=== PATIENT | male | born 1970 | race African-American/Black ===

== ENCOUNTER 2017-03-18 16:17 | Inpatient (IN) | payer MEDICAID, MEDICARE ==
[~2017-03-18] VITALS: Ht 167.6 cm; Wt 192.8 kg
[~2017-03-18 16:17] MED LIST: ADVAIR; ALLO100T PO; COR12 PO; ENALAPRIL; FURO40TA5 PO; HYDR-4134 PO; ISOSORBIDE; LANOXIN 0.25 MG; LIP40 PO; LISI-186 PO; METF500T4 PO; POTA10TA20 PO; RIVA20TA PO; SPIR25TA PO; WARF5TAB73 PO; amiodarone PO
[2017-03-18] MEDS ORDERED: LEVETIRACETAM 500MG PREMIX 100 ML IV ONE (18:00)
[2017-03-18 18:16] LABS: BASOPHILS % 1.1 % (0.0-2.0); HEMOGLOBIN. 12.8 g/dL (14.0-18.0); LYMPHOCYTES % 37.9 % (20.0-50.0); MEAN CORPUSCULAR HEMOGLOBIN 27.8 pg (28.0-32.0); MEAN CORPUSCULAR VOLUME 82.5 fL (80.0-94.0); MEAN PLATELET VOLUME 8.3 fl (7.4-10.4); MONOCYTES % 7.9 % (2.0-8.0); NEUTROPHILS % 51.1 % (40.0-76.0); PLATELET 215 x1000/uL (130-400); RED CELL DISTRIBUTION WIDTH 15.7 % (11.6-14.6)
[2017-03-18 18:25] LABS: INR 2.9; PARTIAL THROMBOPLASTIN TIME 43.7 sec (23.4-31.0); PROTHROMBIN TIME 29.8 sec (9.4-11.6)
[2017-03-18 18:30] LABS: CARBON DIOXIDE 29 mEq/L (21-32); CHLORIDE 102 mEq/L (98-107)
[2017-03-18 18:33] LABS: TROPONIN I < 0.02 ng/mL (0.00-0.04)
[2017-03-18] MEDS ORDERED: ASPIRIN 81MG TABLET PO ONE (18:45)
[2017-03-18 20:45] LABS: CLARITY URINE CLEAR (CLEAR); COLOR URINE YELLOW (YELLOW); GLUCOSE URINE NEGATIVE (NEGATIVE); KETONES URINE TRACE (NEGATIVE); LEUKOCYTE ESTERASE URINE NEGATIVE (NEGATIVE); NITRITE URINE NEGATIVE (NEGATIVE); OCCULT BLOOD URINE NEGATIVE (NEGATIVE); PROTEIN URINE TRACE (NEGATIVE); SPECIFIC GRAVITY URINE 1.029 (1.005-1.030); UROBILINOGEN URINE 0.2 E.U./dL (0.2-1.0)
[2017-03-18] MEDS ORDERED: DEXTROSE 50% WATER 50ML SYRINGE IV PRN (21:30)
[2017-03-18 22:07] VITALS: BP_SYST 103; BP_SYST 126; BP_DIAS 63; BP_DIAS 72
[2017-03-18 23:54] LABS: BASOPHILS % 0.8 % (0.0-2.0); HEMATOCRIT. 37.2 % (42.0-52.0); HEMOGLOBIN. 12.4 g/dL (14.0-18.0); LYMPHOCYTES % 46.4 % (20.0-50.0); MEAN CORPUSCULAR HEMOGLOBIN 27.6 pg (28.0-32.0); MEAN CORPUSCULAR VOLUME 82.6 fL (80.0-94.0); MEAN PLATELET VOLUME 7.6 fl (7.4-10.4); NEUTROPHILS % 43.8 % (40.0-76.0); PLATELET 204 x1000/uL (130-400); RED CELL DISTRIBUTION WIDTH 16.1 % (11.6-14.6)
[2017-03-19 00:18] LABS: CARBON DIOXIDE 28 mEq/L (21-32); CHLORIDE 104 mEq/L (98-107); CREATINE KINASE 210 IU/L (39-308); TROPONIN I < 0.02 ng/mL (0.00-0.04)
[2017-03-19 00:23] LABS: CREATINE KINASE MB FRACTION 1.5 ng/mL (0.5-3.6)
[2017-03-19] MEDS ORDERED: CLONIDINE 0.1MG TABLET PO PRN (01:15)
[2017-03-19 04:00] VITALS: BP 157/91
[2017-03-19] MEDS: BLOOD SUGAR DIAGNOSTIC STRIP TEST SCH ×4 (06:38→21:42)
[2017-03-19] MEDS: INSULIN LISPRO 100 UNITS/ML SUBCUT SCH ×4 (06:46→21:53)
[2017-03-19 06:51] LABS: INR 2.9; PROTHROMBIN TIME 29.8 sec (9.4-11.6)
[2017-03-19 07:08] LABS: BASOPHILS % 0.5 % (0.0-2.0); EOSINOPHILS % 2.1 % (0.0-5.0); HEMATOCRIT. 37.5 % (42.0-52.0); HEMOGLOBIN. 12.5 g/dL (14.0-18.0); LYMPHOCYTES % 36.7 % (20.0-50.0); MEAN CORPUSCULAR HEMOGLOBIN 27.7 pg (28.0-32.0); MEAN CORPUSCULAR VOLUME 82.8 fL (80.0-94.0); MEAN PLATELET VOLUME 8.2 fl (7.4-10.4); MONOCYTES % 8.4 % (2.0-8.0); NEUTROPHILS % 52.3 % (40.0-76.0); PLATELET 216 x1000/uL (130-400); RED BLOOD CELL COUNT 4.53 mill/uL (4.7-6.1); RED CELL DISTRIBUTION WIDTH 15.9 % (11.6-14.6)
[2017-03-19 07:31] LABS: CHLORIDE 102 mEq/L (98-107)
[2017-03-19 07:48] LABS: CARBON DIOXIDE 28 mEq/L (21-32); HDL CHOLESTEROL 44 mg/dL (40-59); LDL CHOLESTEROL 118 mg/dL (5-100)
[2017-03-19 08:00] VITALS: BP 136/67
[2017-03-19] MEDS: ASPIRIN 81MG TABLET PO SCH (08:55)
[2017-03-19] MEDS ORDERED: IOHEXOL-350 100 ML BOTTLE ONE (11:19)
[2017-03-19] MEDS ORDERED: SODIUM CHLORIDE 0.9% 10ML VIAL ONE (11:19)
[2017-03-19] MEDS ORDERED: LORAZEPAM 2MG/ML CPJ IV PRN (11:30)
[2017-03-19 11:40] LABS: BG BASE EXCESS 3.9 mmol/L (-2.0-2.0); BG CARBOXYHEMOGLOBIN 1.1 % (0.5-1.5); BG DEOXYHEMOGLOBIN 4.9 % (0.0-5.0); BG FRACTION INSPIRED OXYGEN 21; BG HCO3 ACT 30.4 mmol/L (22.0-26.0); BG METHEMOGLOBIN 0.3 % (0.0-1.5); BG OXYHEMOGLOBIN 93.7 % (94.0-97.0); BG PCO2 53.1 mmHg (35.0-45.0); BG PH 7.375 (7.350-7.450); BG PO2 75.8 mmHg (75.0-100.0); BG SAMPLE SITE RIGHT RADIAL; BG VENT MODE ROOM AIR
[2017-03-19 12:00] VITALS: BP_SYST 103; BP_SYST 165; BP_DIAS 64; BP_DIAS 92
[2017-03-19] MEDS: LEVETIRACETAM 500MG TABLET PO SCH ×2 (12:25→21:48)
[2017-03-19 13:00] LABS: T4 FREE 0.94 ng/dL (0.76-1.46)
[2017-03-19 13:16] LABS: FOLIC ACID (FOLATE) SERUM 12.7 ng/mL (>5.38)
[2017-03-19] MEDS: ALLOPURINOL 100 MG TABLET PO SCH (13:48)
[2017-03-19] MEDS: HYDRALAZINE HCL 25MG TABLET PO SCH ×2 (13:49→21:49)
[2017-03-19] MEDS: AMIODARONE HCL 200 MG TABLET PO SCH (13:49)
[2017-03-19] MEDS ORDERED: LIDOCAINE HCL/PF 1% 2ML VIAL ONE (14:42)
[2017-03-19 16:00] VITALS: BP 139/92
[2017-03-19] MEDS ORDERED: WARFARIN SODIUM 7.5MG TABLET PO SCH (18:00)
[2017-03-19] MEDS: FUROSEMIDE 40MG TABLET PO SCH (18:03)
[2017-03-19] MEDS: METFORMIN HCL 500MG TABLET PO SCH (18:03)
[2017-03-19 20:00] VITALS: BP 134/76
[2017-03-19] MEDS ORDERED: ATORVASTATIN CALCIUM 40MG TABLET PO SCH (21:00)
[2017-03-19] MEDS: CARVEDILOL 12.5MG TABLET PO SCH (21:48)
[2017-03-20] VITALS: BP 123/68
[2017-03-20 04:07] VITALS: BP 118/67
[2017-03-20] MEDS: BLOOD SUGAR DIAGNOSTIC STRIP TEST SCH ×3 (06:12→17:06)
[2017-03-20] MEDS: INSULIN LISPRO 100 UNITS/ML SUBCUT SCH ×3 (06:20→18:05)
[2017-03-20] MEDS: HYDRALAZINE HCL 25MG TABLET PO SCH ×2 (06:20→13:45)
[2017-03-20 06:30] LABS: BASOPHILS % 0.3 % (0.0-2.0); EOSINOPHILS % 1.8 % (0.0-5.0); HEMATOCRIT. 39.2 % (42.0-52.0); HEMOGLOBIN. 13.1 g/dL (14.0-18.0); LYMPHOCYTES % 38.9 % (20.0-50.0); MEAN CORPUSCULAR HEMOGLOBIN 27.6 pg (28.0-32.0); MEAN CORPUSCULAR VOLUME 82.4 fL (80.0-94.0); MEAN PLATELET VOLUME 8.3 fl (7.4-10.4); MONOCYTES % 7.6 % (2.0-8.0); NEUTROPHILS % 51.4 % (40.0-76.0); PLATELET 239 x1000/uL (130-400); RED BLOOD CELL COUNT 4.75 mill/uL (4.7-6.1); RED CELL DISTRIBUTION WIDTH 16.2 % (11.6-14.6)
[2017-03-20 06:36] LABS: INR 2.1; PROTHROMBIN TIME 22.4 sec (9.4-11.6)
[2017-03-20 07:52] LABS: CARBON DIOXIDE 29 mEq/L (21-32); CHLORIDE 97 mEq/L (98-107)
[2017-03-20 08:05] LABS: *AMPHETAMINES SCREEN URINE NEGATIVE (NEGATIVE); *BARBITURATES SCREEN URINE NEGATIVE (NEGATIVE); *BENZODIAZEPINES SCREEN URINE NEGATIVE (NEGATIVE); *COCAINE SCREEN URINE NEGATIVE (NEGATIVE); CANNABINOID URINE SCREEN NEGATIVE (NEGATIVE); METHADONE URINE SCREEN NEGATIVE (NEGATIVE); OPIATES URINE SCREEN NEGATIVE (NEGATIVE); PHENCYCLIDINE URINE SCREEN NEGATIVE (NEGATIVE)
[2017-03-20 08:30] VITALS: BP 141/86
[2017-03-20] MEDS: ALLOPURINOL 100 MG TABLET PO SCH (08:58)
[2017-03-20] MEDS: ASPIRIN 81MG TABLET PO SCH (08:58)
[2017-03-20] MEDS: METFORMIN HCL 500MG TABLET PO SCH ×2 (08:58→18:03)
[2017-03-20] MEDS: LEVETIRACETAM 500MG TABLET PO SCH (08:58)
[2017-03-20] MEDS: CARVEDILOL 12.5MG TABLET PO SCH (08:59)
[2017-03-20] MEDS: AMIODARONE HCL 200 MG TABLET PO SCH (08:59)
[2017-03-20] MEDS: FUROSEMIDE 40MG TABLET PO SCH ×2 (08:59→17:00)
[2017-03-20] MEDS ORDERED: SPIRONOLACTONE 25MG TABLET PO SCH (09:00)
[2017-03-20] MEDS ORDERED: POTASSIUM CHLORIDE 10MEQ TABLET SR PO SCH (09:00)
[2017-03-20] MEDS ORDERED: WARFARIN SODIUM 5MG TABLET PO SCH (09:00)
[2017-03-20] MEDS ORDERED: KEPP500 PO (11:15)
[2017-03-20 12:30] VITALS: BP 131/77
[2017-03-20 16:30] VITALS: BP 141/86
[2017-03-20] MEDS ORDERED: WARFARIN SODIUM 10MG TABLET PO NR (18:00)
[2017-03-20 18:07] VITALS: BP 86/77
== END 2017-03-20 18:30 | disposition home or self-care (01) | DRG 69 ==
LOC: ER 16:17 → 5WST 19:11 → EDBEDREQSVC 19:17 → EDBEDREQ 19:17 → SUPCPDRO 19:43 → ENRESERV 20:39 → 5WST 03-19 00:50
PROVIDERS: ADMIT Internal Medicine; ATTEND Internal Medicine
DX: G45.9 Transient cerebral ischemic attack, unspecified (principal); G93.41 Metabolic encephalopathy; E11.65 Type 2 diabetes mellitus with hyperglycemia; I11.0 Hypertensive heart disease with heart failure; I50.42 Chronic combined systolic (congestive) and diastolic (congestive) heart failure; G40.909 Epilepsy, unspecified, not intractable, without status epilepticus; I48.91 Unspecified atrial fibrillation; Z68.44 Body mass index [BMI] 60.0-69.9, adult; I25.10 Atherosclerotic heart disease of native coronary artery without angina pectoris; E78.00 Pure hypercholesterolemia, unspecified; E78.5 Hyperlipidemia, unspecified; G47.33 Obstructive sleep apnea (adult) (pediatric); J44.9 Chronic obstructive pulmonary disease, unspecified; K42.9 Umbilical hernia without obstruction or gangrene; M10.9 Gout, unspecified; E66.01 Morbid (severe) obesity due to excess calories; Z79.84 Long term (current) use of oral hypoglycemic drugs; Z79.899 Other long term (current) drug therapy; Z79.01 Long term (current) use of anticoagulants; Z87.891 Personal history of nicotine dependence; Z95.810 Presence of automatic (implantable) cardiac defibrillator; Z86.73 Personal history of transient ischemic attack (TIA), and cerebral infarction without residual deficits; Z88.0 Allergy status to penicillin; Z91.19 Patient's noncompliance with other medical treatment and regimen; Z82.49 Family history of ischemic heart disease and other diseases of the circulatory system; Z83.3 Family history of diabetes mellitus; Z82.5 Family history of asthma and other chronic lower respiratory diseases
CPT/HCPCS: 36415; 36600; 70450; 70496; 71010; 80048; 80053; 80061; 80305; 81001; 82375; 82550; 82553; 82607; 82746; 82805; 82962; 83036; 83735; 83880; 84439; 84443; 84481; 84484; 85025; 85610; 85730; 92610; 93005; 93306; 93880; 93970; 96365; 97162; 97166; 99285; A4216; G0482; J1815; J1953; J3490; Q9967

== ENCOUNTER 2017-04-28 12:33 | Emergency (ER) | payer MEDICARE ==
[~2017-04-28] VITALS: Ht 167.6 cm; Wt 186.0 kg
[~2017-04-28 12:33] MED LIST changes: +KEPP500 PO; -RIVA20TA PO
[2017-04-28] MEDS ORDERED: LEVETIRACETAM 500MG TABLET PO ONE (14:00)
[2017-04-28 14:03] LABS: CLARITY URINE CLEAR (CLEAR); COLOR URINE YELLOW (YELLOW); GLUCOSE URINE NEGATIVE (NEGATIVE); KETONES URINE NEGATIVE (NEGATIVE); LEUKOCYTE ESTERASE URINE NEGATIVE (NEGATIVE); NITRITE URINE NEGATIVE (NEGATIVE); OCCULT BLOOD URINE NEGATIVE (NEGATIVE); PH URINE 6.5 (4.5-8.0); PROTEIN URINE NEGATIVE (NEGATIVE); SPECIFIC GRAVITY URINE 1.014 (1.005-1.030); UROBILINOGEN URINE 0.2 E.U./dL (0.2-1.0)
[2017-04-28 14:11] LABS: BASOPHILS % 1.2 % (0.0-2.0); EOSINOPHILS % 2.3 % (0.0-5.0); HEMATOCRIT. 37.3 % (42.0-52.0); HEMOGLOBIN. 12.4 g/dL (14.0-18.0); LYMPHOCYTES % 34.2 % (20.0-50.0); MEAN CORPUSCULAR HEMOGLOBIN 27.7 pg (28.0-32.0); MEAN CORPUSCULAR VOLUME 83.4 fL (80.0-94.0); MEAN PLATELET VOLUME 7.5 fl (7.4-10.4); MONOCYTES % 7.9 % (2.0-8.0); NEUTROPHILS % 54.4 % (40.0-76.0); PLATELET 205 x1000/uL (130-400); RED BLOOD CELL COUNT 4.47 mill/uL (4.7-6.1); RED CELL DISTRIBUTION WIDTH 15.9 % (11.6-14.6)
[2017-04-28 14:20] LABS: CARBON DIOXIDE 30 mEq/L (21-32); CHLORIDE 104 mEq/L (98-107)
[2017-04-28 14:25] LABS: *AMPHETAMINES SCREEN URINE NEGATIVE (NEGATIVE); *BARBITURATES SCREEN URINE NEGATIVE (NEGATIVE); *BENZODIAZEPINES SCREEN URINE NEGATIVE (NEGATIVE); *COCAINE SCREEN URINE NEGATIVE (NEGATIVE); CANNABINOID URINE SCREEN NEGATIVE (NEGATIVE); METHADONE URINE SCREEN NEGATIVE (NEGATIVE); OPIATES URINE SCREEN NEGATIVE (NEGATIVE); PHENCYCLIDINE URINE SCREEN NEGATIVE (NEGATIVE)
[2017-04-28 14:32] LABS: CREATINE KINASE 249 IU/L (39-308); ETHANOL BLOOD < 10 mg/dL
[2017-04-28 14:34] LABS: CARBAMAZEPINE < 0.5 ug/mL (4-12); PHENOBARBITAL < 2.1 ug/mL (15.0-40.0)
[2017-04-28 14:45] LABS: DIGOXIN < 0.1 ng/mL (0.9-2.0)
[2017-04-28 15:30] VITALS: BP 142/78
== END 2017-04-28 15:30 | disposition home or self-care (01) ==
LOC: ER 12:42
DX: R56.9 Unspecified convulsions (principal); R60.9 Edema, unspecified; Z91.19 Patient's noncompliance with other medical treatment and regimen; Z95.0 Presence of cardiac pacemaker; Z88.0 Allergy status to penicillin; Z79.01 Long term (current) use of anticoagulants
CPT/HCPCS: 36415; 80053; 80156; 80162; 80165; 80184; 80185; 80305; 81003; 82550; 84443; 85025; 93005; 99285; G0482

== ENCOUNTER 2017-05-07 13:38 | Inpatient (IN) | payer MEDICARE ==
[~2017-05-07] VITALS: Ht 167.6 cm; Wt 189.1 kg
[2017-05-07 15:34] LABS: HEMATOCRIT. 40.2 % (42.0-52.0); HEMOGLOBIN. 13.4 g/dL (14.0-18.0); MEAN CORPUSCULAR HEMOGLOBIN 28.2 pg (28.0-32.0); MEAN CORPUSCULAR VOLUME 84.7 fL (80.0-94.0); MEAN PLATELET VOLUME 8.3 fl (7.4-10.4); PLATELET 177 x1000/uL (130-400); RED BLOOD CELL COUNT 4.75 mill/uL (4.7-6.1); RED CELL DISTRIBUTION WIDTH 15.7 % (11.6-14.6)
[2017-05-07 15:41] LABS: INR 1.6; PROTHROMBIN TIME 16.3 sec (9.4-11.6)
[2017-05-07 15:48] LABS: CARBON DIOXIDE 30 mEq/L (21-32); CHLORIDE 100 mEq/L (98-107)
[2017-05-07 15:51] LABS: TROPONIN I < 0.02 ng/mL (0.00-0.04)
[2017-05-07 17:00] LABS: PLATELET ESTIMATE NORMAL
[2017-05-07] MEDS ORDERED: SODIUM CHLORIDE 0.9% 1,000 ML IV ONE (18:11)
[2017-05-07] MEDS ORDERED: ACETAMINOPHEN 650MG/20.3ML UDC PO ONE (18:15)
[2017-05-07] MEDS ORDERED: LEVOFLOXACIN 750MG PREMIX 150 ML IV ONE (19:00)
[2017-05-07 20:00] VITALS: BP 153/84
[2017-05-07 21:15] VITALS: BP 153/84
[2017-05-07] MEDS ORDERED: ACETAMINOPHEN 325MG TABLET PO PRN (23:00)
[2017-05-07] MEDS ORDERED: DEXTROSE 50% WATER 50ML SYRINGE IV PRN (23:00)
[2017-05-07] MEDS ORDERED: HYDROCODONE/ACETAMINOPHEN 5/325MG TABLET PO PRN (23:00)
[2017-05-07] MEDS ORDERED: IPRATROPIUM/ALBUTEROL 0.5-3(2.5)MG/3ML NEB INH PRN (23:00)
[2017-05-07] MEDS: IPRATROPIUM/ALBUTEROL 0.5-3(2.5)MG/3ML NEB HHN SCH (23:43)
[2017-05-07 23:45] LABS: BG BASE EXCESS -0.3 mmol/L (-2.0-2.0); BG CARBOXYHEMOGLOBIN 1.1 % (0.5-1.5); BG DEOXYHEMOGLOBIN 7.3 % (0.0-5.0); BG FRACTION INSPIRED OXYGEN 21; BG HCO3 ACT 23.6 mmol/L (22.0-26.0); BG METHEMOGLOBIN 0.2 % (0.0-1.5); BG OXYGEN SATURATION 92.6 % (92.0-98.5); BG OXYHEMOGLOBIN 91.4 % (94.0-97.0); BG PCO2 36.3 mmHg (35.0-45.0); BG PH 7.431 (7.350-7.450); BG PO2 63.7 mmHg (75.0-100.0); BG SAMPLE SITE RIGHT RADIAL; BG VENT MODE ROOM AIR
[2017-05-07] MEDS: ENOXAPARIN 40MG/0.4ML SYR SUBCUT SCH (23:57)
[2017-05-08 00:27] VITALS: BP 129/56
[2017-05-08] MEDS ORDERED: CEFTRIAXONE 1 G PREMIX 50 ML IV SCH (00:30)
[2017-05-08 01:03] LABS: CLARITY URINE CLEAR (CLEAR); COLOR URINE YELLOW (YELLOW); GLUCOSE URINE NEGATIVE (NEGATIVE); KETONES URINE NEGATIVE (NEGATIVE); LEUKOCYTE ESTERASE URINE NEGATIVE (NEGATIVE); NITRITE URINE NEGATIVE (NEGATIVE); OCCULT BLOOD URINE NEGATIVE (NEGATIVE); PH URINE 7.5 (4.5-8.0); PROTEIN URINE 1+ (NEGATIVE); SPECIFIC GRAVITY URINE 1.025 (1.005-1.030)
[2017-05-08 01:14] LABS: *AMPHETAMINES SCREEN URINE NEGATIVE (NEGATIVE); *BARBITURATES SCREEN URINE NEGATIVE (NEGATIVE); *BENZODIAZEPINES SCREEN URINE NEGATIVE (NEGATIVE); *COCAINE SCREEN URINE NEGATIVE (NEGATIVE); CANNABINOID URINE SCREEN NEGATIVE (NEGATIVE); METHADONE URINE SCREEN NEGATIVE (NEGATIVE); OPIATES URINE SCREEN PRESUMTIVE POSITIVE (NEGATIVE); PHENCYCLIDINE URINE SCREEN NEGATIVE (NEGATIVE)
[2017-05-08] MEDS ORDERED: IOHEXOL-350 100 ML BOTTLE ONE (03:38)
[2017-05-08 04:00] VITALS: BP 118/66
[2017-05-08] MEDS: IPRATROPIUM/ALBUTEROL 0.5-3(2.5)MG/3ML NEB HHN SCH ×5 (04:15→20:55)
[2017-05-08] MEDS: HYDRALAZINE HCL 25MG TABLET PO SCH ×3 (06:28→21:35)
[2017-05-08] MEDS: BLOOD SUGAR DIAGNOSTIC STRIP TEST SCH ×4 (06:28→21:35)
[2017-05-08 06:32] LABS: INR 1.5; PROTHROMBIN TIME 15.4 sec (9.4-11.6)
[2017-05-08] MEDS: INSULIN LISPRO 100 UNITS/ML SUBCUT SCH ×4 (06:32→21:44)
[2017-05-08 06:53] LABS: BASOPHILS % 0.4 % (0.0-2.0); EOSINOPHILS % 0.1 % (0.0-5.0); HEMATOCRIT. 37.3 % (42.0-52.0); HEMOGLOBIN. 12.6 g/dL (14.0-18.0); LYMPHOCYTES % 10.1 % (20.0-50.0); MEAN CORPUSCULAR HEMOGLOBIN 28.5 pg (28.0-32.0); MEAN CORPUSCULAR VOLUME 84.3 fL (80.0-94.0); MEAN PLATELET VOLUME 8.5 fl (7.4-10.4); MONOCYTES % 6.5 % (2.0-8.0); NEUTROPHILS % 82.9 % (40.0-76.0); PLATELET 178 x1000/uL (130-400); RED BLOOD CELL COUNT 4.42 mill/uL (4.7-6.1); RED CELL DISTRIBUTION WIDTH 15.7 % (11.6-14.6)
[2017-05-08 07:20] LABS: CARBON DIOXIDE 28 mEq/L (21-32); CHLORIDE 101 mEq/L (98-107); HDL CHOLESTEROL 47 mg/dL (40-59); LDL CHOLESTEROL 61 mg/dL (5-100); TROPONIN I < 0.02 ng/mL (0.00-0.04)
[2017-05-08 08:00] VITALS: BP 154/68
[2017-05-08] MEDS: LEVETIRACETAM 500MG TABLET PO SCH ×2 (08:47→21:34)
[2017-05-08] MEDS: FUROSEMIDE 40MG/4ML VIAL IVP SCH (08:47)
[2017-05-08] MEDS: AMIODARONE HCL 200 MG TABLET PO SCH (08:48)
[2017-05-08] MEDS: METFORMIN HCL 500MG TABLET PO SCH ×2 (08:48→17:09)
[2017-05-08] MEDS: CARVEDILOL 12.5MG TABLET PO SCH ×2 (08:48→17:09)
[2017-05-08] MEDS: ENOXAPARIN 40MG/0.4ML SYR SUBCUT SCH ×2 (08:49→21:36)
[2017-05-08] MEDS: SPIRONOLACTONE 25MG TABLET PO SCH (08:51)
[2017-05-08 12:00] VITALS: BP 101/58
[2017-05-08] MEDS: ALLOPURINOL 100 MG TABLET PO SCH (12:04)
[2017-05-08 16:00] VITALS: BP 117/56
[2017-05-08] MEDS: WARFARIN SODIUM 5MG TABLET PO SCH (17:10)
[2017-05-08] MEDS: LEVOFLOXACIN 750MG PREMIX 150 ML IV SCH (17:47)
[2017-05-08 20:00] VITALS: BP 133/94
[2017-05-08] MEDS: ATORVASTATIN CALCIUM 40MG TABLET PO SCH (21:38)
[2017-05-09] VITALS: BP 150/75
[2017-05-09] MEDS: IPRATROPIUM/ALBUTEROL 0.5-3(2.5)MG/3ML NEB HHN SCH ×6 (00:20→20:48)
[2017-05-09 04:00] VITALS: BP 144/82
[2017-05-09 05:59] LABS: INR 1.3; PROTHROMBIN TIME 13.4 sec (9.4-11.6)
[2017-05-09] MEDS: HYDRALAZINE HCL 25MG TABLET PO SCH ×3 (06:35→21:27)
[2017-05-09] MEDS: BLOOD SUGAR DIAGNOSTIC STRIP TEST SCH ×4 (06:35→21:26)
[2017-05-09] MEDS: INSULIN LISPRO 100 UNITS/ML SUBCUT SCH ×4 (06:41→21:32)
[2017-05-09 08:00] VITALS: BP 157/70
[2017-05-09] MEDS: FUROSEMIDE 40MG/4ML VIAL IVP SCH (08:40)
[2017-05-09] MEDS: CARVEDILOL 12.5MG TABLET PO SCH ×2 (08:41→17:28)
[2017-05-09] MEDS: LEVETIRACETAM 500MG TABLET PO SCH ×2 (08:41→21:26)
[2017-05-09] MEDS: METFORMIN HCL 500MG TABLET PO SCH ×2 (08:41→17:28)
[2017-05-09] MEDS: ALLOPURINOL 100 MG TABLET PO SCH (08:41)
[2017-05-09] MEDS: AMIODARONE HCL 200 MG TABLET PO SCH (08:42)
[2017-05-09] MEDS: SPIRONOLACTONE 25MG TABLET PO SCH (08:42)
[2017-05-09] MEDS: ENOXAPARIN 40MG/0.4ML SYR SUBCUT SCH ×2 (08:49→21:26)
[2017-05-09] MEDS ORDERED: POTASSIUM CHLORIDE 20MEQ TABLET SR PO NR (11:00)
[2017-05-09 12:00] VITALS: BP 110/66
[2017-05-09 16:00] VITALS: BP 117/63
[2017-05-09] MEDS: WARFARIN SODIUM 5MG TABLET PO SCH (17:29)
[2017-05-09] MEDS: LEVOFLOXACIN 750MG PREMIX 150 ML IV SCH (18:37)
[2017-05-09 20:00] VITALS: BP 117/52
[2017-05-09] MEDS: ATORVASTATIN CALCIUM 40MG TABLET PO SCH (21:26)
[2017-05-10] VITALS (7 sets, daily range): BP systolic 120–144; BP diastolic 51–74
[2017-05-10] MEDS: IPRATROPIUM/ALBUTEROL 0.5-3(2.5)MG/3ML NEB HHN SCH ×6 (01:21→21:25)
[2017-05-10 06:18] LABS: BASOPHILS % 0.3 % (0.0-2.0); HEMATOCRIT. 37.1 % (42.0-52.0); HEMOGLOBIN. 12.5 g/dL (14.0-18.0); LYMPHOCYTES % 36.1 % (20.0-50.0); MEAN CORPUSCULAR HEMOGLOBIN 28.1 pg (28.0-32.0); MEAN CORPUSCULAR VOLUME 83.1 fL (80.0-94.0); MEAN PLATELET VOLUME 8.2 fl (7.4-10.4); MONOCYTES % 11.5 % (2.0-8.0); NEUTROPHILS % 50.1 % (40.0-76.0); PLATELET 188 x1000/uL (130-400); RED BLOOD CELL COUNT 4.47 mill/uL (4.7-6.1); RED CELL DISTRIBUTION WIDTH 15.6 % (11.6-14.6)
[2017-05-10 06:19] LABS: INR 1.2; PROTHROMBIN TIME 12.8 sec (9.4-11.6)
[2017-05-10] MEDS: HYDRALAZINE HCL 25MG TABLET PO SCH ×3 (06:37→21:31)
[2017-05-10] MEDS: BLOOD SUGAR DIAGNOSTIC STRIP TEST SCH ×4 (06:37→21:31)
[2017-05-10] MEDS: INSULIN LISPRO 100 UNITS/ML SUBCUT SCH ×4 (06:43→21:00)
[2017-05-10 06:56] LABS: CHLORIDE 100 mEq/L (98-107)
[2017-05-10 07:11] LABS: CARBON DIOXIDE 29 mEq/L (21-32)
[2017-05-10] MEDS: LEVETIRACETAM 500MG TABLET PO SCH ×2 (08:50→21:31)
[2017-05-10] MEDS: AMIODARONE HCL 200 MG TABLET PO SCH (08:50)
[2017-05-10] MEDS: SPIRONOLACTONE 25MG TABLET PO SCH (08:50)
[2017-05-10] MEDS: FUROSEMIDE 40MG/4ML VIAL IVP SCH (08:50)
[2017-05-10] MEDS: METFORMIN HCL 500MG TABLET PO SCH ×2 (08:51→17:05)
[2017-05-10] MEDS: CARVEDILOL 12.5MG TABLET PO SCH ×2 (08:51→17:05)
[2017-05-10] MEDS: ENOXAPARIN 40MG/0.4ML SYR SUBCUT SCH ×2 (08:51→21:32)
[2017-05-10] MEDS: ALLOPURINOL 100 MG TABLET PO SCH (08:51)
[2017-05-10] MEDS: WARFARIN SODIUM 5MG TABLET PO SCH (17:47)
[2017-05-10] MEDS: LEVOFLOXACIN 750MG PREMIX 150 ML IV SCH (18:04)
[2017-05-10] MEDS: ATORVASTATIN CALCIUM 40MG TABLET PO SCH (21:31)
[2017-05-11] VITALS: BP 118/70
[2017-05-11] MEDS: IPRATROPIUM/ALBUTEROL 0.5-3(2.5)MG/3ML NEB HHN SCH ×5 (01:40→16:42)
[2017-05-11 04:00] VITALS: BP 139/88
[2017-05-11 06:33] LABS: INR 1.2; PROTHROMBIN TIME 12.9 sec (9.4-11.6)
[2017-05-11] MEDS: BLOOD SUGAR DIAGNOSTIC STRIP TEST SCH ×3 (06:48→16:43)
[2017-05-11] MEDS: HYDRALAZINE HCL 25MG TABLET PO SCH ×2 (06:51→16:43)
[2017-05-11] MEDS: INSULIN LISPRO 100 UNITS/ML SUBCUT SCH ×3 (06:52→16:51)
[2017-05-11 07:42] LABS: HEMATOCRIT. 36.6 % (42.0-52.0); HEMOGLOBIN. 12.5 g/dL (14.0-18.0); MEAN CORPUSCULAR HEMOGLOBIN 28.6 pg (28.0-32.0); MEAN CORPUSCULAR VOLUME 83.8 fL (80.0-94.0); MEAN PLATELET VOLUME 7.9 fl (7.4-10.4); PLATELET 212 x1000/uL (130-400); RED BLOOD CELL COUNT 4.37 mill/uL (4.7-6.1); RED CELL DISTRIBUTION WIDTH 15.7 % (11.6-14.6)
[2017-05-11 07:53] VITALS: BP 126/70
[2017-05-11 08:28] LABS: CARBON DIOXIDE 29 mEq/L (21-32); CHLORIDE 100 mEq/L (98-107)
[2017-05-11] MEDS: FUROSEMIDE 40MG/4ML VIAL IVP SCH (09:22)
[2017-05-11] MEDS: CARVEDILOL 12.5MG TABLET PO SCH ×2 (09:23→16:52)
[2017-05-11] MEDS: LEVETIRACETAM 500MG TABLET PO SCH (09:23)
[2017-05-11] MEDS: ALLOPURINOL 100 MG TABLET PO SCH (09:24)
[2017-05-11] MEDS: AMIODARONE HCL 200 MG TABLET PO SCH (09:24)
[2017-05-11] MEDS: METFORMIN HCL 500MG TABLET PO SCH ×2 (09:24→16:53)
[2017-05-11] MEDS: SPIRONOLACTONE 25MG TABLET PO SCH (09:24)
[2017-05-11] MEDS: ENOXAPARIN 40MG/0.4ML SYR SUBCUT SCH (09:33)
[2017-05-11 11:57] VITALS: BP 141/75
[2017-05-11 16:00] VITALS: BP 117/87
[2017-05-11 16:47] LABS: PLATELET ESTIMATE NORMAL
[2017-05-11 16:57] VITALS: BP 117/71
[2017-05-11] MEDS ORDERED: LEVOFLOXACIN 250MG TABLET PO SCH (18:00)
== END 2017-05-11 17:50 | disposition home or self-care (01) | DRG 205 ==
LOC: ER 14:41 → EDBEDREQTM 18:59 → EDBEDREQ 18:59 → 5WST 18:59 → ENRESERV 19:52 → EDBEDREQ 20:29
PROVIDERS: ADMIT Internal Medicine; ATTEND Internal Medicine
PROC: 5A09357 Assistance with Respiratory Ventilation, Less than 24 Consecutive Hours, Continuous Positive Airway Pressure (ICD-10-PCS; principal; 2017-05-10)
PROC: 5A09357 Assistance with Respiratory Ventilation, Less than 24 Consecutive Hours, Continuous Positive Airway Pressure (ICD-10-PCS; 2017-05-11)
DX: M94.0 Chondrocostal junction syndrome [Tietze] (principal); J96.00 Acute respiratory failure, unspecified whether with hypoxia or hypercapnia; I11.0 Hypertensive heart disease with heart failure; I42.9 Cardiomyopathy, unspecified; R65.10 Systemic inflammatory response syndrome (SIRS) of non-infectious origin without acute organ dysfunction; E66.01 Morbid (severe) obesity due to excess calories; E87.70 Fluid overload, unspecified; I50.20 Unspecified systolic (congestive) heart failure; L03.115 Cellulitis of right lower limb; Z68.44 Body mass index [BMI] 60.0-69.9, adult; Z79.01 Long term (current) use of anticoagulants; I48.0 Paroxysmal atrial fibrillation; G40.909 Epilepsy, unspecified, not intractable, without status epilepticus; I25.10 Atherosclerotic heart disease of native coronary artery without angina pectoris; J45.909 Unspecified asthma, uncomplicated; K42.9 Umbilical hernia without obstruction or gangrene; M10.9 Gout, unspecified; E78.5 Hyperlipidemia, unspecified; G47.33 Obstructive sleep apnea (adult) (pediatric); E87.6 Hypokalemia; E11.9 Type 2 diabetes mellitus without complications; J20.9 Acute bronchitis, unspecified; E78.00 Pure hypercholesterolemia, unspecified; Z79.84 Long term (current) use of oral hypoglycemic drugs; Z79.899 Other long term (current) drug therapy; Z88.0 Allergy status to penicillin; Z87.891 Personal history of nicotine dependence; Z91.19 Patient's noncompliance with other medical treatment and regimen; Z95.810 Presence of automatic (implantable) cardiac defibrillator; Z86.73 Personal history of transient ischemic attack (TIA), and cerebral infarction without residual deficits
CPT/HCPCS: 36415; 36600; 71010; 71275; 80048; 80053; 80061; 80162; 80305; 81001; 82375; 82805; 82962; 83036; 83605; 83880; 84443; 84484; 85025; 85610; 87040; 87804; 93005; 94640; 94660; 96365; 99285; J1650; J1815; J1940; J1956; J7050; J7620; Q9967

== ENCOUNTER 2018-02-28 21:19 | Inpatient (IN) | payer MEDICARE ==
[~2018-02-28] VITALS: Ht 167.6 cm; Wt 194.1 kg
[~2018-02-28 21:19] MED LIST changes: -ADVAIR; +CEPH-569 MT; -ENALAPRIL; -ISOSORBIDE; -LANOXIN 0.25 MG; -METF500T4 PO; +METF500T6 PO; +WARF10TA21 PO; -WARF5TAB73 PO; +WARF5TAB76 PO; -amiodarone PO
[2018-02-28] MEDS ORDERED: ASPIRIN 81MG TABLET PO ONE (22:45)
[2018-02-28 23:15] LABS: BASOPHILS % 0.6 % (0.0-2.0); EOSINOPHILS % 2.1 % (0.0-5.0); HEMATOCRIT. 37.6 % (42.0-52.0); HEMOGLOBIN. 12.6 g/dL (14.0-18.0); LYMPHOCYTES % 40.6 % (20.0-50.0); MEAN CORPUSCULAR HEMOGLOBIN 28.5 pg (28.0-32.0); MEAN CORPUSCULAR VOLUME 85.3 fL (80.0-94.0); MEAN PLATELET VOLUME 7.9 fl (7.4-10.4); MONOCYTES % 8.2 % (2.0-8.0); NEUTROPHILS % 48.5 % (40.0-76.0); PLATELET 203 x1000/uL (130-400); RED BLOOD CELL COUNT 4.41 mill/uL (4.7-6.1); RED CELL DISTRIBUTION WIDTH 15.2 % (11.6-14.6)
[2018-02-28 23:17] LABS: CHLORIDE 104 mEq/L (98-107)
[2018-02-28 23:19] LABS: INR 1.1; PARTIAL THROMBOPLASTIN TIME 27.8 sec (23.4-31.0); PROTHROMBIN TIME 11.4 sec (9.1-11.1)
[2018-02-28] MEDS ORDERED: FUROSEMIDE 40MG/4ML VIAL IVP ONE (23:45)
[2018-03-01 00:34] LABS: CREATINE KINASE 198 IU/L (39-308)
[2018-03-01 00:35] LABS: CREATINE KINASE MB FRACTION < 1.0 ng/mL (0.5-3.6)
[2018-03-01 01:39] LABS: CLARITY URINE CLEAR (CLEAR); COLOR URINE YELLOW (YELLOW); KETONES URINE NEGATIVE (NEGATIVE); LEUKOCYTE ESTERASE URINE NEGATIVE (NEGATIVE); NITRITE URINE NEGATIVE (NEGATIVE); OCCULT BLOOD URINE NEGATIVE (NEGATIVE); PROTEIN URINE NEGATIVE (NEGATIVE); SPECIFIC GRAVITY URINE 1.007 (1.005-1.030); UROBILINOGEN URINE 0.2 E.U./dL (0.2-1.0)
[2018-03-01 02:04] LABS: *BENZODIAZEPINES SCREEN URINE NEGATIVE (NEGATIVE); *COCAINE SCREEN URINE NEGATIVE (NEGATIVE); CANNABINOID URINE SCREEN NEGATIVE (NEGATIVE); METHADONE URINE SCREEN NEGATIVE (NEGATIVE); OPIATES URINE SCREEN NEGATIVE (NEGATIVE)
[2018-03-01 02:05] LABS: PHENCYCLIDINE URINE SCREEN NEGATIVE (NEGATIVE)
[2018-03-01 02:06] LABS: *AMPHETAMINES SCREEN URINE NEGATIVE (NEGATIVE); *BARBITURATES SCREEN URINE NEGATIVE (NEGATIVE)
[2018-03-01] MEDS: LISINOPRIL 5MG TABLET PO SCH (10:55)
[2018-03-01] MEDS: POTASSIUM CHLORIDE 20MEQ TABLET SR PO SCH (10:56)
[2018-03-01] MEDS: SPIRONOLACTONE 25MG TABLET PO SCH (10:56)
[2018-03-01 11:34] VITALS: BP 142/79
[2018-03-01 12:00] VITALS: BP 142/79
[2018-03-01] MEDS: INSULIN LISPRO 100 UNITS/ML SUBCUT SCH ×2 (13:35→18:09)
[2018-03-01] MEDS ORDERED: DEXTROSE 50% WATER 50ML SYRINGE IV PRN (13:45)
[2018-03-01] MEDS: HYDRALAZINE HCL 25MG TABLET PO SCH ×2 (14:52→21:45)
[2018-03-01 16:00] VITALS: BP 172/97
[2018-03-01] MEDS ORDERED: IPRATROPIUM/ALBUTEROL 0.5-3(2.5)MG/3ML NEB HHN PRN (16:15)
[2018-03-01] MEDS: METFORMIN HCL 500MG TABLET PO SCH (18:17)
[2018-03-01] MEDS: BLOOD SUGAR DIAGNOSTIC STRIP TEST SCH ×2 (18:17→21:00)
[2018-03-01] MEDS: WARFARIN SODIUM 10MG TABLET PO SCH (18:18)
[2018-03-01] MEDS: FUROSEMIDE 40MG/4ML VIAL IVP SCH (18:27)
[2018-03-01 20:00] VITALS: BP 154/79
[2018-03-01] MEDS: IPRATROPIUM/ALBUTEROL 0.5-3(2.5)MG/3ML NEB HHN SCH (20:57)
[2018-03-01] MEDS: CARVEDILOL 12.5MG TABLET PO SCH (21:45)
[2018-03-01] MEDS: LEVETIRACETAM 500MG TABLET PO SCH (21:45)
[2018-03-01] MEDS: ATORVASTATIN CALCIUM 40MG TABLET PO SCH (21:45)
[2018-03-02] VITALS: BP 134/76
[2018-03-02] MEDS: IPRATROPIUM/ALBUTEROL 0.5-3(2.5)MG/3ML NEB HHN SCH ×4 (02:05→21:39)
[2018-03-02 04:00] VITALS: BP 120/69
[2018-03-02] MEDS: FUROSEMIDE 40MG/4ML VIAL IVP SCH ×2 (06:25→18:27)
[2018-03-02] MEDS: HYDRALAZINE HCL 25MG TABLET PO SCH ×3 (06:26→20:44)
[2018-03-02 06:57] LABS: INR 1.1; PROTHROMBIN TIME 10.6 sec (9.1-11.1)
[2018-03-02] MEDS: BLOOD SUGAR DIAGNOSTIC STRIP TEST SCH ×4 (07:40→20:45)
[2018-03-02 08:00] VITALS: BP 132/69
[2018-03-02] MEDS: SPIRONOLACTONE 25MG TABLET PO SCH (08:42)
[2018-03-02] MEDS: LEVETIRACETAM 500MG TABLET PO SCH ×2 (08:42→20:44)
[2018-03-02] MEDS: LISINOPRIL 5MG TABLET PO SCH (08:42)
[2018-03-02] MEDS: CARVEDILOL 12.5MG TABLET PO SCH ×2 (08:42→20:44)
[2018-03-02] MEDS: METFORMIN HCL 500MG TABLET PO SCH ×2 (08:42→18:18)
[2018-03-02] MEDS: INSULIN LISPRO 100 UNITS/ML SUBCUT SCH ×4 (08:43→20:45)
[2018-03-02] MEDS: POTASSIUM CHLORIDE 20MEQ TABLET SR PO SCH (09:19)
[2018-03-02 12:00] VITALS: BP 126/81
[2018-03-02 16:00] VITALS: BP 137/60
[2018-03-02] MEDS: WARFARIN SODIUM 5MG TABLET PO SCH (18:19)
[2018-03-02 20:00] VITALS: BP 149/87
[2018-03-02] MEDS: ATORVASTATIN CALCIUM 40MG TABLET PO SCH (20:44)
[2018-03-03] VITALS: BP 129/55
[2018-03-03] MEDS: IPRATROPIUM/ALBUTEROL 0.5-3(2.5)MG/3ML NEB HHN SCH ×4 (03:18→21:27)
[2018-03-03 04:00] VITALS: BP 128/70
[2018-03-03] MEDS: HYDRALAZINE HCL 25MG TABLET PO SCH ×3 (06:19→21:07)
[2018-03-03] MEDS: FUROSEMIDE 40MG/4ML VIAL IVP SCH ×2 (06:20→18:27)
[2018-03-03] MEDS: BLOOD SUGAR DIAGNOSTIC STRIP TEST SCH ×4 (06:20→21:05)
[2018-03-03 08:00] VITALS: BP 151/87
[2018-03-03 08:20] LABS: BASOPHILS % 0.3 % (0.0-2.0); EOSINOPHILS % 2.1 % (0.0-5.0); HEMATOCRIT. 38.9 % (42.0-52.0); MEAN CORPUSCULAR HEMOGLOBIN 28.5 pg (28.0-32.0); MEAN CORPUSCULAR VOLUME 85.3 fL (80.0-94.0); MEAN PLATELET VOLUME 8.1 fl (7.4-10.4); MONOCYTES % 8.9 % (2.0-8.0); NEUTROPHILS % 50.7 % (40.0-76.0); PLATELET 193 x1000/uL (130-400); RED BLOOD CELL COUNT 4.56 mill/uL (4.7-6.1); RED CELL DISTRIBUTION WIDTH 15.3 % (11.6-14.6)
[2018-03-03 08:41] LABS: CHLORIDE 98 mEq/L (98-107)
[2018-03-03] MEDS: CARVEDILOL 12.5MG TABLET PO SCH ×2 (08:50→21:03)
[2018-03-03] MEDS: LEVETIRACETAM 500MG TABLET PO SCH ×2 (08:50→21:03)
[2018-03-03] MEDS: POTASSIUM CHLORIDE 20MEQ TABLET SR PO SCH (08:50)
[2018-03-03] MEDS: SPIRONOLACTONE 25MG TABLET PO SCH (08:51)
[2018-03-03] MEDS: METFORMIN HCL 500MG TABLET PO SCH ×2 (08:51→17:41)
[2018-03-03] MEDS: LISINOPRIL 5MG TABLET PO SCH (08:51)
[2018-03-03] MEDS: INSULIN LISPRO 100 UNITS/ML SUBCUT SCH ×4 (08:56→21:00)
[2018-03-03 12:00] VITALS: BP 116/65
[2018-03-03 16:00] VITALS: BP 131/95
[2018-03-03] MEDS: WARFARIN SODIUM 10MG TABLET PO SCH (17:41)
[2018-03-03 20:00] VITALS: BP 144/74
[2018-03-03] MEDS: ATORVASTATIN CALCIUM 40MG TABLET PO SCH (21:03)
[2018-03-04] MEDS: IPRATROPIUM/ALBUTEROL 0.5-3(2.5)MG/3ML NEB HHN SCH ×4 (01:56→21:31)
[2018-03-04] MEDS: HYDRALAZINE HCL 25MG TABLET PO SCH ×3 (05:06→22:08)
[2018-03-04] MEDS: BLOOD SUGAR DIAGNOSTIC STRIP TEST SCH ×4 (07:46→21:57)
[2018-03-04 08:00] VITALS: BP 141/81
[2018-03-04 08:22] LABS: CHLORIDE 99 mEq/L (98-107)
[2018-03-04 08:27] LABS: INR 1.2; PROTHROMBIN TIME 11.9 sec (9.1-11.1)
[2018-03-04] MEDS: FUROSEMIDE 40MG/4ML VIAL IVP SCH ×2 (08:52→16:19)
[2018-03-04] MEDS: METFORMIN HCL 500MG TABLET PO SCH ×2 (08:52→17:36)
[2018-03-04] MEDS: INSULIN LISPRO 100 UNITS/ML SUBCUT SCH ×4 (08:53→21:05)
[2018-03-04] MEDS: SPIRONOLACTONE 25MG TABLET PO SCH (08:54)
[2018-03-04] MEDS: POTASSIUM CHLORIDE 20MEQ TABLET SR PO SCH (08:54)
[2018-03-04] MEDS: LEVETIRACETAM 500MG TABLET PO SCH ×2 (08:54→20:54)
[2018-03-04] MEDS: LISINOPRIL 5MG TABLET PO SCH (08:54)
[2018-03-04] MEDS: CARVEDILOL 12.5MG TABLET PO SCH ×2 (08:55→20:54)
[2018-03-04 12:05] VITALS: BP 99/79
[2018-03-04 16:00] VITALS: BP 129/76
[2018-03-04] MEDS: WARFARIN SODIUM 5MG TABLET PO SCH (17:43)
[2018-03-04 20:00] VITALS: BP 136/74
[2018-03-04] MEDS: ATORVASTATIN CALCIUM 40MG TABLET PO SCH (20:53)
[2018-03-05] VITALS: BP 110/62
[2018-03-05] MEDS: IPRATROPIUM/ALBUTEROL 0.5-3(2.5)MG/3ML NEB HHN SCH ×4 (03:27→20:34)
[2018-03-05 04:00] VITALS: BP 119/30
[2018-03-05 05:34] LABS: INR 1.2; PROTHROMBIN TIME 12.1 sec (9.1-11.1)
[2018-03-05 05:43] LABS: BASOPHILS % 0.4 % (0.0-2.0); EOSINOPHILS % 2.3 % (0.0-5.0); HEMATOCRIT. 38.5 % (42.0-52.0); HEMOGLOBIN. 13.3 g/dL (14.0-18.0); LYMPHOCYTES % 40.1 % (20.0-50.0); MEAN CORPUSCULAR HEMOGLOBIN 29.2 pg (28.0-32.0); MEAN CORPUSCULAR VOLUME 84.8 fL (80.0-94.0); MEAN PLATELET VOLUME 8.1 fl (7.4-10.4); MONOCYTES % 9.2 % (2.0-8.0); PLATELET 193 x1000/uL (130-400); RED BLOOD CELL COUNT 4.54 mill/uL (4.7-6.1); RED CELL DISTRIBUTION WIDTH 15.1 % (11.6-14.6)
[2018-03-05 05:55] LABS: CHLORIDE 97 mEq/L (98-107)
[2018-03-05] MEDS: HYDRALAZINE HCL 25MG TABLET PO SCH ×3 (06:11→21:44)
[2018-03-05] MEDS: BLOOD SUGAR DIAGNOSTIC STRIP TEST SCH ×4 (06:11→21:46)
[2018-03-05] MEDS: FUROSEMIDE 40MG/4ML VIAL IVP SCH ×2 (06:11→17:15)
[2018-03-05 07:58] VITALS: BP 140/70
[2018-03-05] MEDS: LEVETIRACETAM 500MG TABLET PO SCH ×2 (08:22→21:44)
[2018-03-05] MEDS: SPIRONOLACTONE 25MG TABLET PO SCH (08:22)
[2018-03-05] MEDS: LISINOPRIL 5MG TABLET PO SCH (08:23)
[2018-03-05] MEDS: POTASSIUM CHLORIDE 20MEQ TABLET SR PO SCH (08:23)
[2018-03-05] MEDS: METFORMIN HCL 500MG TABLET PO SCH ×2 (08:23→17:15)
[2018-03-05] MEDS: CARVEDILOL 12.5MG TABLET PO SCH ×2 (08:23→21:44)
[2018-03-05] MEDS: INSULIN LISPRO 100 UNITS/ML SUBCUT SCH ×5 (08:27→22:25)
[2018-03-05 11:51] VITALS: BP 144/88
[2018-03-05 16:14] VITALS: BP 145/78
[2018-03-05] MEDS: WARFARIN SODIUM 10MG TABLET PO SCH (17:15)
[2018-03-05 20:00] VITALS: BP 159/69
[2018-03-05] MEDS: ATORVASTATIN CALCIUM 40MG TABLET PO SCH (21:55)
[2018-03-06] VITALS: BP 156/88
[2018-03-06] MEDS: IPRATROPIUM/ALBUTEROL 0.5-3(2.5)MG/3ML NEB HHN SCH ×4 (00:42→22:03)
[2018-03-06 04:00] VITALS: BP 123/71
[2018-03-06] MEDS: HYDRALAZINE HCL 25MG TABLET PO SCH ×3 (05:52→20:58)
[2018-03-06] MEDS: FUROSEMIDE 40MG/4ML VIAL IVP SCH ×2 (06:35→17:07)
[2018-03-06 08:17] VITALS: BP 121/76
[2018-03-06] MEDS: METFORMIN HCL 500MG TABLET PO SCH ×2 (08:29→17:10)
[2018-03-06] MEDS: POTASSIUM CHLORIDE 20MEQ TABLET SR PO SCH (08:29)
[2018-03-06] MEDS: LEVETIRACETAM 500MG TABLET PO SCH ×2 (08:30→20:57)
[2018-03-06] MEDS: LISINOPRIL 5MG TABLET PO SCH (08:30)
[2018-03-06] MEDS: SPIRONOLACTONE 25MG TABLET PO SCH (08:30)
[2018-03-06] MEDS: CARVEDILOL 12.5MG TABLET PO SCH ×2 (08:30→20:58)
[2018-03-06] MEDS: INSULIN LISPRO 100 UNITS/ML SUBCUT SCH ×4 (08:32→21:00)
[2018-03-06] MEDS: BLOOD SUGAR DIAGNOSTIC STRIP TEST SCH ×4 (08:39→20:58)
[2018-03-06 11:52] VITALS: BP 135/66
[2018-03-06 16:00] VITALS: BP 130/81
[2018-03-06] MEDS ORDERED: WARFARIN SODIUM 10MG TABLET PO SCH (18:00)
[2018-03-06 19:39] VITALS: BP 119/67
[2018-03-06] MEDS: ATORVASTATIN CALCIUM 40MG TABLET PO SCH (20:58)
[2018-03-07] VITALS (7 sets, daily range): BP systolic 116–137; BP diastolic 66–74
[2018-03-07] MEDS: IPRATROPIUM/ALBUTEROL 0.5-3(2.5)MG/3ML NEB HHN SCH ×4 (03:13→20:21)
[2018-03-07] MEDS: FUROSEMIDE 40MG/4ML VIAL IVP SCH ×2 (05:32→17:24)
[2018-03-07] MEDS: HYDRALAZINE HCL 25MG TABLET PO SCH ×3 (05:32→20:49)
[2018-03-07 07:05] LABS: BASOPHILS % 0.5 % (0.0-2.0); EOSINOPHILS % 1.8 % (0.0-5.0); HEMATOCRIT. 40.9 % (42.0-52.0); LYMPHOCYTES % 41.4 % (20.0-50.0); MEAN CORPUSCULAR HEMOGLOBIN 28.9 pg (28.0-32.0); MEAN CORPUSCULAR VOLUME 84.5 fL (80.0-94.0); MEAN PLATELET VOLUME 8.1 fl (7.4-10.4); MONOCYTES % 8.4 % (2.0-8.0); NEUTROPHILS % 47.9 % (40.0-76.0); PLATELET 190 x1000/uL (130-400); RED BLOOD CELL COUNT 4.84 mill/uL (4.7-6.1); RED CELL DISTRIBUTION WIDTH 15.2 % (11.6-14.6)
[2018-03-07 07:12] LABS: INR 1.4; PROTHROMBIN TIME 13.6 sec (9.1-11.1)
[2018-03-07] MEDS: BLOOD SUGAR DIAGNOSTIC STRIP TEST SCH ×4 (07:40→20:44)
[2018-03-07 07:41] LABS: CHLORIDE 94 mEq/L (98-107)
[2018-03-07] MEDS: METFORMIN HCL 500MG TABLET PO SCH ×2 (08:10→17:23)
[2018-03-07] MEDS: SPIRONOLACTONE 25MG TABLET PO SCH (08:10)
[2018-03-07] MEDS: LEVETIRACETAM 500MG TABLET PO SCH ×2 (08:10→20:49)
[2018-03-07] MEDS: POTASSIUM CHLORIDE 20MEQ TABLET SR PO SCH (08:11)
[2018-03-07] MEDS: LISINOPRIL 5MG TABLET PO SCH (08:11)
[2018-03-07] MEDS: INSULIN LISPRO 100 UNITS/ML SUBCUT SCH ×4 (08:11→20:45)
[2018-03-07] MEDS: CARVEDILOL 12.5MG TABLET PO SCH ×2 (08:11→20:49)
[2018-03-07] MEDS: WARFARIN SODIUM 5MG TABLET PO SCH (18:09)
[2018-03-07] MEDS: ATORVASTATIN CALCIUM 40MG TABLET PO SCH (20:48)
== END 2018-03-07 22:45 | DRG 291 ==
LOC: ER 22:02 → 7WST 03-01 00:06 → EDBEDREQTM 03-01 02:05 → EDBEDREQ 03-01 02:05 → EDBEDREQSVC 03-01 02:05 → ENRESERV 03-01 07:25
PROVIDERS: ADMIT Hospitalist; ATTEND Hospitalist
PROC: 5A09357 Assistance with Respiratory Ventilation, Less than 24 Consecutive Hours, Continuous Positive Airway Pressure (ICD-10-PCS; principal; 2018-03-03)
PROC: 5A09357 Assistance with Respiratory Ventilation, Less than 24 Consecutive Hours, Continuous Positive Airway Pressure (ICD-10-PCS; 2018-03-04)
PROC: 5A09357 Assistance with Respiratory Ventilation, Less than 24 Consecutive Hours, Continuous Positive Airway Pressure (ICD-10-PCS; 2018-03-06)
PROC: 5A09357 Assistance with Respiratory Ventilation, Less than 24 Consecutive Hours, Continuous Positive Airway Pressure (ICD-10-PCS; 2018-03-07)
DX: I11.0 Hypertensive heart disease with heart failure (principal); J96.00 Acute respiratory failure, unspecified whether with hypoxia or hypercapnia; Z68.44 Body mass index [BMI] 60.0-69.9, adult; E66.2 Morbid (severe) obesity with alveolar hypoventilation; I50.43 Acute on chronic combined systolic (congestive) and diastolic (congestive) heart failure; E78.5 Hyperlipidemia, unspecified; K42.9 Umbilical hernia without obstruction or gangrene; E11.9 Type 2 diabetes mellitus without complications; R35.1 Nocturia; M10.9 Gout, unspecified; J45.909 Unspecified asthma, uncomplicated; I48.0 Paroxysmal atrial fibrillation; G40.909 Epilepsy, unspecified, not intractable, without status epilepticus; Z87.891 Personal history of nicotine dependence; Z95.810 Presence of automatic (implantable) cardiac defibrillator; Z88.0 Allergy status to penicillin; Z79.899 Other long term (current) drug therapy; Z59.0 Homelessness; I69.328 Other speech and language deficits following cerebral infarction; I69.320 Aphasia following cerebral infarction
CPT/HCPCS: 36415; 71045; 80048; 80053; 80305; 81003; 82550; 82553; 82962; 83690; 83735; 83880; 84484; 85025; 85610; 85730; 93005; 93971; 94640; 94660; 96374; 99285; C1893; J1815; J1940; J7620; A4315

== ENCOUNTER 2018-06-29 16:39 | Emergency (ER) | payer MEDICARE ==
[~2018-06-29] VITALS: Ht 167.6 cm; Wt 198.0 kg
[~2018-06-29 16:39] MED LIST changes: +METF-414 PO; -METF500T6 PO
[2018-06-29 16:51] VITALS: BP 160/85
[2018-06-29] MEDS ORDERED: LEVETIRACETAM 500MG TABLET PO ONE (17:30)
== END 2018-06-29 17:57 | disposition home or self-care (01) ==
LOC: ER 16:39
DX: Z76.0 Encounter for issue of repeat prescription (principal); J45.909 Unspecified asthma, uncomplicated; I11.9 Hypertensive heart disease without heart failure; E11.9 Type 2 diabetes mellitus without complications; R56.9 Unspecified convulsions; Z88.0 Allergy status to penicillin; Z79.01 Long term (current) use of anticoagulants; Z95.810 Presence of automatic (implantable) cardiac defibrillator
CPT/HCPCS: 99283

== ENCOUNTER 2018-08-03 12:14 | Inpatient (IN) | payer MEDICARE ==
[~2018-08-03] VITALS: Ht 167.6 cm; Wt 181.0 kg
[2018-08-03] MEDS ORDERED: FUROSEMIDE 40MG/4ML VIAL IV ONE (16:00)
[2018-08-03 17:01] LABS: CHLORIDE 107 mEq/L (98-107)
[2018-08-03 17:02] LABS: BASOPHILS % 0.6 % (0.0-2.0); EOSINOPHILS % 1.9 % (0.0-5.0); HEMATOCRIT. 38.6 % (42.0-52.0); HEMOGLOBIN. 12.6 g/dL (14.0-18.0); LYMPHOCYTES % 33.8 % (20.0-50.0); MEAN CORPUSCULAR HEMOGLOBIN 27.5 pg (28.0-32.0); MEAN CORPUSCULAR VOLUME 84.4 fL (80.0-94.0); MEAN PLATELET VOLUME 8.3 fl (7.4-10.4); MONOCYTES % 7.5 % (2.0-8.0); NEUTROPHILS % 56.2 % (40.0-76.0); PLATELET 235 x1000/uL (130-400); RED BLOOD CELL COUNT 4.58 mill/uL (4.7-6.1); RED CELL DISTRIBUTION WIDTH 15.9 % (11.6-14.6)
[2018-08-03] MEDS ORDERED: ALBUTEROL (0.083%) 2.5MG/3ML NEB HHN ONE (18:00)
[2018-08-03] MEDS ORDERED: IPRATROPIUM/ALBUTEROL 0.5-3(2.5)MG/3ML NEB INH PRN (21:30)
[2018-08-03] MEDS ORDERED: LORAZEPAM 2MG/ML CPJ IV PRN (21:30)
[2018-08-03] MEDS ORDERED: GUAIFENESIN 200MG/10ML SUGAR FREE UDC PO PRN (21:30)
[2018-08-03] MEDS ORDERED: MAGNESIUM/ALUMINUM HYDROXIDE/SIMETHICONE 30ML UDC PO PRN (21:30)
[2018-08-03] MEDS ORDERED: ACETAMINOPHEN 325MG TABLET PO PRN (21:30)
[2018-08-03] MEDS ORDERED: HYDRALAZINE 20MG/ML VIAL IV PRN (21:30)
[2018-08-03] MEDS ORDERED: CLONIDINE 0.1MG TABLET PO PRN (21:30)
[2018-08-03] MEDS ORDERED: DEXTROSE 50% WATER 50ML SYRINGE IV PRN (21:30)
[2018-08-04 00:09] LABS: CHLORIDE 104 mEq/L (98-107)
[2018-08-04 05:29] LABS: INR 1.2
[2018-08-04] MEDS ORDERED: LEVETIRACETAM 500MG/5ML CUP PO SCH (09:00)
[2018-08-04 10:05] VITALS: BP 167/86
[2018-08-04 10:15] VITALS: BP 167/86
[2018-08-04] MEDS: LISINOPRIL 5MG TABLET PO SCH (10:57)
[2018-08-04] MEDS: ATORVASTATIN CALCIUM 20MG TABLET PO SCH ×2 (11:00→20:57)
[2018-08-04] MEDS: LEVETIRACETAM 500MG/5ML CUP PO SCH ×2 (11:00→20:57)
[2018-08-04] MEDS: CARVEDILOL 12.5MG TABLET PO SCH ×2 (11:01→20:58)
[2018-08-04] MEDS: FUROSEMIDE 40MG/4ML VIAL IVP SCH ×2 (11:01→17:57)
[2018-08-04] MEDS: SPIRONOLACTONE 25MG TABLET PO SCH (11:01)
[2018-08-04] MEDS: ALLOPURINOL 100 MG TABLET PO SCH (11:01)
[2018-08-04 12:00] VITALS: BP 168/98
[2018-08-04] MEDS: BLOOD SUGAR DIAGNOSTIC STRIP TEST SCH ×3 (12:34→20:59)
[2018-08-04] MEDS: INSULIN LISPRO 100 UNITS/ML SUBCUT SCH ×3 (12:34→20:59)
[2018-08-04] MEDS: IPRATROPIUM/ALBUTEROL 0.5-3(2.5)MG/3ML NEB HHN SCH (14:58)
[2018-08-04] MEDS ORDERED: METOLAZONE 10MG TABLET PO NR (15:00)
[2018-08-04] MEDS: HYDRALAZINE HCL 25MG TABLET PO SCH ×2 (15:29→22:22)
[2018-08-04] MEDS: SODIUM CHLORIDE 0.9% INJ 3ML FLUSH IVF SCH ×2 (15:30→22:22)
[2018-08-04 16:00] VITALS: BP 166/91
[2018-08-04] MEDS ORDERED: WARFARIN SODIUM 10MG TABLET PO SCH (18:00)
[2018-08-04 20:00] VITALS: BP 163/78
[2018-08-05] VITALS (7 sets, daily range): BP systolic 119–149; BP diastolic 53–80
[2018-08-05] MEDS: IPRATROPIUM/ALBUTEROL 0.5-3(2.5)MG/3ML NEB HHN SCH ×4 (00:16→21:02)
[2018-08-05] MEDS: FUROSEMIDE 40MG/4ML VIAL IVP SCH ×2 (06:03→17:32)
[2018-08-05] MEDS: HYDRALAZINE HCL 25MG TABLET PO SCH ×3 (06:03→21:02)
[2018-08-05] MEDS: SODIUM CHLORIDE 0.9% INJ 3ML FLUSH IVF SCH ×3 (06:04→21:24)
[2018-08-05] MEDS: INSULIN LISPRO 100 UNITS/ML SUBCUT SCH ×4 (06:06→21:23)
[2018-08-05] MEDS: BLOOD SUGAR DIAGNOSTIC STRIP TEST SCH ×4 (06:11→21:06)
[2018-08-05] MEDS: ALLOPURINOL 100 MG TABLET PO SCH (09:20)
[2018-08-05] MEDS: LISINOPRIL 5MG TABLET PO SCH (09:20)
[2018-08-05] MEDS: CARVEDILOL 12.5MG TABLET PO SCH ×2 (09:20→21:00)
[2018-08-05] MEDS: LEVETIRACETAM 500MG/5ML CUP PO SCH ×2 (09:21→20:59)
[2018-08-05] MEDS: SPIRONOLACTONE 25MG TABLET PO SCH (09:21)
[2018-08-05 09:35] LABS: INR 1.3; PROTHROMBIN TIME 12.7 sec (9.1-11.1)
[2018-08-05 10:42] LABS: CHLORIDE 92 mEq/L (98-107)
[2018-08-05] MEDS ORDERED: METOLAZONE 10MG TABLET PO NR (14:00)
[2018-08-05] MEDS: METFORMIN HCL 500MG TABLET PO SCH (17:32)
[2018-08-05] MEDS ORDERED: WARFARIN SODIUM 7.5MG TABLET PO NR (18:00)
[2018-08-05] MEDS: ONDANSETRON HCL 4MG/2ML INJ IV PRN (19:02)
[2018-08-05] MEDS: KETOROLAC 30MG/ML VIAL IV PRN (19:08)
[2018-08-05] MEDS: ATORVASTATIN CALCIUM 20MG TABLET PO SCH (21:00)
[2018-08-06] VITALS: BP 101/57
[2018-08-06] MEDS: IPRATROPIUM/ALBUTEROL 0.5-3(2.5)MG/3ML NEB HHN SCH ×3 (00:36→09:11)
[2018-08-06 04:00] VITALS: BP 117/63
[2018-08-06] MEDS: SODIUM CHLORIDE 0.9% INJ 3ML FLUSH IVF SCH ×3 (05:38→21:07)
[2018-08-06] MEDS: BLOOD SUGAR DIAGNOSTIC STRIP TEST SCH ×4 (05:39→20:41)
[2018-08-06] MEDS: METFORMIN HCL 500MG TABLET PO SCH ×2 (05:51→17:06)
[2018-08-06] MEDS: HYDRALAZINE HCL 25MG TABLET PO SCH ×3 (05:51→21:06)
[2018-08-06] MEDS: FUROSEMIDE 40MG/4ML VIAL IVP SCH ×2 (05:51→17:06)
[2018-08-06] MEDS: INSULIN LISPRO 100 UNITS/ML SUBCUT SCH ×4 (06:00→21:13)
[2018-08-06 08:00] VITALS: BP 166/53
[2018-08-06 08:30] LABS: INR 1.3; PROTHROMBIN TIME 12.7 sec (9.1-11.1)
[2018-08-06] MEDS: CARVEDILOL 12.5MG TABLET PO SCH ×2 (09:00→20:44)
[2018-08-06] MEDS: LISINOPRIL 5MG TABLET PO SCH (09:54)
[2018-08-06] MEDS: LEVETIRACETAM 500MG/5ML CUP PO SCH ×2 (09:54→20:40)
[2018-08-06] MEDS: SPIRONOLACTONE 25MG TABLET PO SCH (09:54)
[2018-08-06] MEDS: ALLOPURINOL 100 MG TABLET PO SCH (09:55)
[2018-08-06 12:00] VITALS: BP 111/64
[2018-08-06] MEDS: ONDANSETRON HCL 4MG/2ML INJ IV PRN (13:34)
[2018-08-06] MEDS: KETOROLAC 30MG/ML VIAL IV PRN (13:35)
[2018-08-06 16:00] VITALS: BP 103/60
[2018-08-06] MEDS ORDERED: WARFARIN SODIUM 7.5MG TABLET PO SCH (18:00)
[2018-08-06 20:00] VITALS: BP 122/66
[2018-08-06] MEDS: ATORVASTATIN CALCIUM 20MG TABLET PO SCH (20:40)
[2018-08-07] VITALS: BP 129/54
[2018-08-07] MEDS: IPRATROPIUM/ALBUTEROL 0.5-3(2.5)MG/3ML NEB HHN SCH ×3 (00:20→15:18)
[2018-08-07 04:00] VITALS: BP 133/61
[2018-08-07] MEDS: METFORMIN HCL 500MG TABLET PO SCH ×2 (06:10→18:14)
[2018-08-07] MEDS: HYDRALAZINE HCL 25MG TABLET PO SCH ×3 (06:10→22:08)
[2018-08-07] MEDS: FUROSEMIDE 40MG/4ML VIAL IVP SCH (06:10)
[2018-08-07] MEDS: BLOOD SUGAR DIAGNOSTIC STRIP TEST SCH ×4 (06:10→21:28)
[2018-08-07] MEDS: INSULIN LISPRO 100 UNITS/ML SUBCUT SCH ×4 (06:11→21:35)
[2018-08-07] MEDS: SODIUM CHLORIDE 0.9% INJ 3ML FLUSH IVF SCH ×3 (06:33→21:29)
[2018-08-07 07:23] LABS: PROTHROMBIN TIME > 100.0 sec (9.1-11.1)
[2018-08-07 07:28] LABS: INR > 10.0
[2018-08-07 08:00] VITALS: BP 108/59
[2018-08-07] MEDS: SPIRONOLACTONE 25MG TABLET PO SCH (08:45)
[2018-08-07] MEDS: ALLOPURINOL 100 MG TABLET PO SCH (08:45)
[2018-08-07] MEDS: LISINOPRIL 5MG TABLET PO SCH (08:45)
[2018-08-07] MEDS: LEVETIRACETAM 500MG/5ML CUP PO SCH ×2 (08:45→21:28)
[2018-08-07] MEDS: CARVEDILOL 12.5MG TABLET PO SCH ×2 (08:45→21:29)
[2018-08-07 12:00] VITALS: BP 116/60
[2018-08-07] MEDS: KETOROLAC 30MG/ML VIAL IV PRN (12:26)
[2018-08-07 12:40] LABS: INR 1.5; PROTHROMBIN TIME 15.4 sec (9.1-11.1)
[2018-08-07 16:00] VITALS: BP 115/59
[2018-08-07] MEDS ORDERED: WARFARIN SODIUM 7.5MG TABLET PO SCH (18:00)
[2018-08-07 20:00] VITALS: BP 143/68
[2018-08-07] MEDS: ATORVASTATIN CALCIUM 20MG TABLET PO SCH (21:28)
[2018-08-08] VITALS: BP 135/63
[2018-08-08] MEDS: IPRATROPIUM/ALBUTEROL 0.5-3(2.5)MG/3ML NEB HHN SCH ×2 (00:56→10:51)
[2018-08-08 04:00] VITALS: BP 131/70
[2018-08-08] MEDS: SODIUM CHLORIDE 0.9% INJ 3ML FLUSH IVF SCH (06:00)
[2018-08-08] MEDS: BLOOD SUGAR DIAGNOSTIC STRIP TEST SCH ×4 (06:00→17:24)
[2018-08-08] MEDS: HYDRALAZINE HCL 25MG TABLET PO SCH ×2 (06:00→13:13)
[2018-08-08] MEDS: INSULIN LISPRO 100 UNITS/ML SUBCUT SCH ×4 (06:40→17:54)
[2018-08-08] MEDS: KETOROLAC 30MG/ML VIAL IV PRN (07:46)
[2018-08-08] MEDS: METFORMIN HCL 500MG TABLET PO SCH ×3 (07:46→17:52)
[2018-08-08 07:59] LABS: INR 1.5
[2018-08-08 08:00] VITALS: BP 109/61
[2018-08-08 08:00] LABS: BASOPHILS % 0.5 % (0.0-2.0); EOSINOPHILS % 1.9 % (0.0-5.0); HEMATOCRIT. 40.7 % (42.0-52.0); HEMOGLOBIN. 13.4 g/dL (14.0-18.0); LYMPHOCYTES % 33.5 % (20.0-50.0); MEAN CORPUSCULAR HEMOGLOBIN 27.7 pg (28.0-32.0); MEAN CORPUSCULAR VOLUME 83.9 fL (80.0-94.0); MONOCYTES % 9.3 % (2.0-8.0); NEUTROPHILS % 54.8 % (40.0-76.0); RED BLOOD CELL COUNT 4.85 mill/uL (4.7-6.1); RED CELL DISTRIBUTION WIDTH 15.8 % (11.6-14.6)
[2018-08-08 08:02] LABS: CHLORIDE 94 mEq/L (98-107)
[2018-08-08] MEDS ORDERED: FUROSEMIDE 40MG TABLET PO SCH (09:00)
[2018-08-08] MEDS: CARVEDILOL 12.5MG TABLET PO SCH (09:00)
[2018-08-08] MEDS: LISINOPRIL 5MG TABLET PO SCH (09:00)
[2018-08-08] MEDS: ALLOPURINOL 100 MG TABLET PO SCH (09:12)
[2018-08-08] MEDS: LEVETIRACETAM 500MG/5ML CUP PO SCH (09:13)
[2018-08-08] MEDS: SPIRONOLACTONE 25MG TABLET PO SCH (09:13)
[2018-08-08 09:30] LABS: PLATELET 169 x1000/uL (130-400)
[2018-08-08 12:09] VITALS: BP 107/49
[2018-08-08 15:06] VITALS: BP 104/49
[2018-08-08] MEDS ORDERED: WARFARIN SODIUM 7.5MG TABLET PO SCH (18:00)
== END 2018-08-08 17:04 | disposition home or self-care (01) | DRG 190 ==
LOC: ER 12:14 → 5WST 18:25 → EDBEDREQTM 18:45 → EDBEDREQ 18:45 → ENRESERV 08-04 06:59
PROVIDERS: ADMIT Internal Medicine; ATTEND Internal Medicine
PROC: 5A09357 Assistance with Respiratory Ventilation, Less than 24 Consecutive Hours, Continuous Positive Airway Pressure (ICD-10-PCS; principal; 2018-08-06)
PROC: 5A09357 Assistance with Respiratory Ventilation, Less than 24 Consecutive Hours, Continuous Positive Airway Pressure (ICD-10-PCS; 2018-08-07)
PROC: 5A09357 Assistance with Respiratory Ventilation, Less than 24 Consecutive Hours, Continuous Positive Airway Pressure (ICD-10-PCS; 2018-08-08)
DX: J44.1 Chronic obstructive pulmonary disease with (acute) exacerbation (principal); I50.33 Acute on chronic diastolic (congestive) heart failure; Z68.44 Body mass index [BMI] 60.0-69.9, adult; E66.01 Morbid (severe) obesity due to excess calories; E11.9 Type 2 diabetes mellitus without complications; E78.5 Hyperlipidemia, unspecified; G40.909 Epilepsy, unspecified, not intractable, without status epilepticus; G47.33 Obstructive sleep apnea (adult) (pediatric); I11.0 Hypertensive heart disease with heart failure; I48.0 Paroxysmal atrial fibrillation; K42.9 Umbilical hernia without obstruction or gangrene; Z59.0 Homelessness; M10.9 Gout, unspecified; Z82.49 Family history of ischemic heart disease and other diseases of the circulatory system; Z82.5 Family history of asthma and other chronic lower respiratory diseases; Z87.891 Personal history of nicotine dependence; I69.320 Aphasia following cerebral infarction; Z88.0 Allergy status to penicillin; Z79.01 Long term (current) use of anticoagulants; Z79.84 Long term (current) use of oral hypoglycemic drugs; Z79.899 Other long term (current) drug therapy; Z95.810 Presence of automatic (implantable) cardiac defibrillator; Z99.81 Dependence on supplemental oxygen
CPT/HCPCS: 36415; 71045; 80048; 82962; 83735; 83880; 84484; 93005; 93970; 94640; 96374; 99285; J1815; J1885; J1940; J2405; J7611; J7620

== ENCOUNTER 2018-09-20 13:37 | Inpatient (IN) | payer MEDICARE ==
[~2018-09-20] VITALS: Ht 167.6 cm; Wt 182.8 kg
[~2018-09-20 13:37] MED LIST changes: -ALLO100T PO; -HYDR-4134 PO; -LIP40 PO; -LISI-186 PO; -POTA10TA20 PO; -SPIR25TA PO
[2018-09-20 21:00] LABS: CLARITY URINE CLEAR (CLEAR); COLOR URINE YELLOW (YELLOW); KETONES URINE TRACE (NEGATIVE); LEUKOCYTE ESTERASE URINE NEGATIVE (NEGATIVE); NITRITE URINE NEGATIVE (NEGATIVE); OCCULT BLOOD URINE NEGATIVE (NEGATIVE); PH URINE 7.5 (4.5-8.0); PROTEIN URINE 2+ (NEGATIVE); SPECIFIC GRAVITY URINE 1.028 (1.005-1.030)
[2018-09-21 00:33] LABS: BASOPHILS % 0.3 % (0.0-2.0); EOSINOPHILS % 1.6 % (0.0-5.0); HEMATOCRIT. 38.2 % (42.0-52.0); HEMOGLOBIN. 12.7 g/dL (14.0-18.0); LYMPHOCYTES % 33.4 % (20.0-50.0); MEAN CORPUSCULAR HEMOGLOBIN 27.7 pg (28.0-32.0); MEAN CORPUSCULAR VOLUME 83.5 fL (80.0-94.0); MEAN PLATELET VOLUME 6.8 fl (7.4-10.4); MONOCYTES % 9.1 % (2.0-8.0); NEUTROPHILS % 55.6 % (40.0-76.0); PLATELET 201 x1000/uL (130-400); RED BLOOD CELL COUNT 4.57 mill/uL (4.7-6.1); RED CELL DISTRIBUTION WIDTH 15.9 % (11.6-14.6)
[2018-09-21 00:54] LABS: CHLORIDE 101 mEq/L (98-107)
[2018-09-21] MEDS ORDERED: FUROSEMIDE 40MG TABLET PO NR (04:45)
[2018-09-21] MEDS ORDERED: LISINOPRIL 20MG TABLET PO NR (04:45)
[2018-09-21] MEDS ORDERED: CARVEDILOL 3.125 MG TABLET PO NR (04:45)
[2018-09-21 09:52] VITALS: BP 147/82
[2018-09-21] MEDS ORDERED: ONDANSETRON HCL 4MG/2ML INJ IV PRN (10:45)
[2018-09-21] MEDS ORDERED: ACETAMINOPHEN 325MG TABLET PO PRN (10:45)
[2018-09-21] MEDS ORDERED: MORPHINE SULFATE 4 MG/ML CPJ (NOT FOR IM USE) IV PRN (10:45)
[2018-09-21] MEDS ORDERED: DEXTROSE 50% WATER 50ML SYRINGE IV PRN (10:45)
[2018-09-21] MEDS: LOSARTAN POTASSIUM 50 MG TABLET PO SCH ×2 (11:32→21:39)
[2018-09-21] MEDS: BLOOD SUGAR DIAGNOSTIC STRIP TEST SCH ×3 (11:38→21:39)
[2018-09-21 11:53] VITALS: BP 166/90
[2018-09-21] MEDS: INSULIN LISPRO 100 UNITS/ML SUBCUT SCH ×3 (13:23→21:56)
[2018-09-21 16:00] VITALS: BP 160/72
[2018-09-21] MEDS ORDERED: FUROSEMIDE 40MG TABLET PO SCH ×2 (17:00→17:15)
[2018-09-21 20:00] VITALS: BP 153/72
[2018-09-21] MEDS ORDERED: LISINOPRIL 20MG TABLET PO SCH (21:00)
[2018-09-21] MEDS: ENOXAPARIN 40MG/0.4ML SYR SUBCUT SCH (21:38)
[2018-09-21] MEDS: CARVEDILOL 3.125 MG TABLET PO SCH (21:39)
[2018-09-21] MEDS: AMLODIPINE 5MG TABLET PO SCH (21:39)
[2018-09-21] MEDS: INSULIN GLARGINE UD 100 UNITS/ML SYR SUBCUT SCH (21:41)
[2018-09-22] VITALS: BP 128/59
[2018-09-22 04:00] VITALS: BP 131/63
[2018-09-22 04:47] LABS: *AMPHETAMINES SCREEN URINE NEGATIVE (NEGATIVE); *BARBITURATES SCREEN URINE NEGATIVE (NEGATIVE); *BENZODIAZEPINES SCREEN URINE NEGATIVE (NEGATIVE); *COCAINE SCREEN URINE NEGATIVE (NEGATIVE)
[2018-09-22 04:48] LABS: CANNABINOID URINE SCREEN NEGATIVE (NEGATIVE); METHADONE URINE SCREEN NEGATIVE (NEGATIVE); OPIATES URINE SCREEN NEGATIVE (NEGATIVE); PHENCYCLIDINE URINE SCREEN NEGATIVE (NEGATIVE)
[2018-09-22] MEDS: INSULIN LISPRO 100 UNITS/ML SUBCUT SCH ×4 (05:05→21:39)
[2018-09-22] MEDS: BLOOD SUGAR DIAGNOSTIC STRIP TEST SCH ×4 (05:05→21:40)
[2018-09-22 07:11] LABS: BASOPHILS % 0.4 % (0.0-2.0); EOSINOPHILS % 1.7 % (0.0-5.0); HEMATOCRIT. 39.6 % (42.0-52.0); LYMPHOCYTES % 26.5 % (20.0-50.0); MEAN CORPUSCULAR HEMOGLOBIN 27.5 pg (28.0-32.0); MEAN CORPUSCULAR VOLUME 83.4 fL (80.0-94.0); MONOCYTES % 8.7 % (2.0-8.0); NEUTROPHILS % 62.7 % (40.0-76.0); PLATELET 226 x1000/uL (130-400); RED BLOOD CELL COUNT 4.74 mill/uL (4.7-6.1)
[2018-09-22 07:58] VITALS: BP 137/70
[2018-09-22] MEDS: COLCHICINE 0.6MG TABLET PO SCH (08:12)
[2018-09-22] MEDS: AMLODIPINE 5MG TABLET PO SCH ×2 (08:12→21:21)
[2018-09-22] MEDS: LOSARTAN POTASSIUM 50 MG TABLET PO SCH ×2 (08:12→21:21)
[2018-09-22] MEDS: CARVEDILOL 3.125 MG TABLET PO SCH ×2 (08:12→21:21)
[2018-09-22] MEDS: ALLOPURINOL 100 MG TABLET PO SCH (08:14)
[2018-09-22] MEDS: FUROSEMIDE 100MG/10ML VIAL IVP SCH ×2 (08:15→17:46)
[2018-09-22] MEDS: ENOXAPARIN 40MG/0.4ML SYR SUBCUT SCH ×2 (08:15→21:22)
[2018-09-22 10:08] LABS: CHLORIDE 98 mEq/L (98-107)
[2018-09-22] MEDS: INSULIN GLARGINE UD 100 UNITS/ML SYR SUBCUT SCH ×2 (11:30→21:39)
[2018-09-22 12:00] VITALS: BP 138/65
[2018-09-22 16:00] VITALS: BP 136/80
[2018-09-22 20:00] VITALS: BP 132/68
[2018-09-23] VITALS: BP 138/65
[2018-09-23 04:00] VITALS: BP 132/70
[2018-09-23] MEDS: BLOOD SUGAR DIAGNOSTIC STRIP TEST SCH ×2 (05:47→12:10)
[2018-09-23] MEDS: INSULIN LISPRO 100 UNITS/ML SUBCUT SCH ×4 (05:49→12:50)
[2018-09-23 07:07] LABS: BASOPHILS % 0.5 % (0.0-2.0); EOSINOPHILS % 1.8 % (0.0-5.0); HEMATOCRIT. 42.8 % (42.0-52.0); LYMPHOCYTES % 29.3 % (20.0-50.0); MEAN CORPUSCULAR HEMOGLOBIN 27.3 pg (28.0-32.0); MEAN CORPUSCULAR VOLUME 83.5 fL (80.0-94.0); MEAN PLATELET VOLUME 7.7 fl (7.4-10.4); NEUTROPHILS % 59.4 % (40.0-76.0); PLATELET 247 x1000/uL (130-400); RED BLOOD CELL COUNT 5.13 mill/uL (4.7-6.1); RED CELL DISTRIBUTION WIDTH 16.3 % (11.6-14.6)
[2018-09-23 07:29] LABS: CHLORIDE 97 mEq/L (98-107)
[2018-09-23 08:00] VITALS: BP 116/65
[2018-09-23] MEDS: ALLOPURINOL 100 MG TABLET PO SCH (08:40)
[2018-09-23] MEDS: AMLODIPINE 5MG TABLET PO SCH (08:40)
[2018-09-23] MEDS: CARVEDILOL 3.125 MG TABLET PO SCH (08:40)
[2018-09-23] MEDS: COLCHICINE 0.6MG TABLET PO SCH (08:40)
[2018-09-23] MEDS: FUROSEMIDE 100MG/10ML VIAL IVP SCH (08:40)
[2018-09-23] MEDS: ENOXAPARIN 40MG/0.4ML SYR SUBCUT SCH (08:40)
[2018-09-23] MEDS: LOSARTAN POTASSIUM 50 MG TABLET PO SCH (08:40)
[2018-09-23] MEDS: INSULIN GLARGINE UD 100 UNITS/ML SYR SUBCUT SCH (10:06)
[2018-09-23 12:00] VITALS: BP 111/60
[2018-09-23 13:55] VITALS: BP 111/60
== END 2018-09-23 15:45 | disposition home or self-care (01) | DRG 292 ==
LOC: ER 13:37 → 8WST 09-21 03:55 → EDBEDREQ 09-21 03:58 → EDBEDREQTM 09-21 03:58 → ENRESERV 09-21 07:15
PROVIDERS: ADMIT Internal Medicine; ATTEND Internal Medicine
PROC: 5A09357 Assistance with Respiratory Ventilation, Less than 24 Consecutive Hours, Continuous Positive Airway Pressure (ICD-10-PCS; principal; 2018-09-22)
PROC: 5A09357 Assistance with Respiratory Ventilation, Less than 24 Consecutive Hours, Continuous Positive Airway Pressure (ICD-10-PCS; 2018-09-23)
DX: I11.0 Hypertensive heart disease with heart failure (principal); E44.1 Mild protein-calorie malnutrition; Z68.44 Body mass index [BMI] 60.0-69.9, adult; E66.01 Morbid (severe) obesity due to excess calories; G47.33 Obstructive sleep apnea (adult) (pediatric); E11.9 Type 2 diabetes mellitus without complications; D64.9 Anemia, unspecified; Z60.2 Problems related to living alone; G40.909 Epilepsy, unspecified, not intractable, without status epilepticus; I50.43 Acute on chronic combined systolic (congestive) and diastolic (congestive) heart failure; Z83.3 Family history of diabetes mellitus; Z95.810 Presence of automatic (implantable) cardiac defibrillator; Z88.0 Allergy status to penicillin; Z79.2 Long term (current) use of antibiotics; Z79.01 Long term (current) use of anticoagulants; Z79.84 Long term (current) use of oral hypoglycemic drugs; Z79.899 Other long term (current) drug therapy; Z71.3 Dietary counseling and surveillance
CPT/HCPCS: 36415; 71045; 73630; 80048; 80305; 82962; 83605; 83880; 84484; 84550; 93005; 93306; 93970; 94660; 96374; 97162; 99285; J1650; J1815; J1940; J2270